=== PATIENT | female | born 1990 | race Caucasian/White ===

== ENCOUNTER 2024-01-21 23:41 | Outpatient (CLI) | payer OTHER, SELFPAY ==
[2024-01-22 00:09] VITALS: BP 143/88; PULSE 127; PULSE 86; PULSE 87; RESP 18; TEMP 36.4; O2SAT 81; O2SAT 99
[2024-01-22 00:27] VITALS: BP 124/81; PULSE 96
[2024-01-22 00:30] LABS: Appearance Urine Slightly Cloudy (Clear); Bilirubin Urine Negative (Negative); Blood Urine 3+ (Negative); Color Urine Yellow (Yellow); Glucose Urine Negative (Negative); Ketones Urine Negative (Negative); Leukocyte Esterase Urine Negative (Negative); Nitrite Urine Negative (Negative); Protein Urine Negative (Negative); Urobilinogen Urine 0.2 (0.2-1.0); pH Urine 6.5 (5.0-8.5)
[2024-01-22 00:40] LABS: Bacteria Urine Moderate; Mucus Urine Few; Squamous Epithelial Cell Urine Few (None-Few)
[2024-01-22 00:41] LABS: Amnisure Rom* Negative
--- NOTE | 2024-01-22 00:47 | US_ITS ---
Patient: TIERNEY GRAVES Facility:?[facility] Patient ID:?[id number] Site Patient ID:?[id number]. Site :?[id number] Study:?US-Abdomen Bilateral RENAL-01/22/2024 1:58:41 AM Ordering Physician:LUIGI PANCHAL Final Report: Indication: Rule out kidney stone Technique: Sonographic evaluation of the kidneys and bladder. Grayscale and color Doppler utilized. Comparison: None Findings: Right kidney: Unremarkable size. Multiple renal stones present. No hydronephrosis. Left kidney: Unremarkable size. Multiple renal stones present. Mild hydronephrosis. Bladder: Filled with debris. Impression: Bilateral renal stones with mild left hydronephrosis and debris in the bladder lumen. Dictated by Tevin Edge MD @ 01/22/2024 2:52:57 AM Signed by:?Tevin Edge MD @01/22/2024 2:52:57 AM (Electronic Signature)
[2024-01-22] MEDS: OXYCODONE 5 MG TABLET PO ×2 (01:03→04:45)
[2024-01-22] MEDS: ONDANSETRON ODT 4 MG TAB PO (01:03)
[2024-01-22 01:26] LABS: Basophils Absolute Auto 0.01 K/uL (0.00-0.30); Basophils Percent Auto 0.1 % (0.0-3.0); Eosinophils Absolute Auto 0.08 K/uL (0.00-0.50); Eosinophils Percent Auto 0.8 % (0.0-7.0); Hematocrit 35.3 % (33.0-51.0); Hemoglobin* 11.6 gm/dL (12.0-16.0); Immature Granulocytes Abs Auto 0.02 K/uL (0.00-0.30); Immature Granulocytes Pct Auto 0.2 %; Lymphocytes Percent Auto 16.6 % (20-44); Mean Corpuscular HGB Conc 33 gm/dL (32-36); Mean Corpuscular Hemoglobin 27 pg (26-34); Mean Corpuscular Volume 82 fL (80-100); Monocytes Percent Auto 7.3 % (0.0-11.0); Platelet Count* 203 K/uL (140-440); RDW Coefficient of Variation % 12.9 % (11.5-15.5); Red Blood Count 4.32 m/uL (4.00-5.20); White Blood Count* 9.92 K/uL (4.50-11.00)
[2024-01-22 01:32] LABS: Slide Review Reflex No
[2024-01-22 01:42] LABS: Albumin* 3.5 g/dL (3.3-5.0); Chloride* 106 mmol/L (96-114); Sodium* 135 mmol/L (135-149)
[2024-01-22 01:43] LABS: Potassium* 3.8 mmol/L (3.6-5.1)
[2024-01-22 01:45] LABS: Alkaline Phosphatase* 114 U/L (40-150); Anion Gap 8 mEq/L (7-15); Aspartate Amino Transferase* 24 U/L (12-35); Bilirubin Total* 0.2 mg/dL (0.1-1.5); Blood Urea Nitrogen* 13 mg/dL (5-24); Carbon Dioxide* 21 mmol/L (20-32); Creatinine* 0.6 mg/dL (0.5-1.5); Estimated Glomerular Filt Rate 121 ml/min; Total Protein* 6.6 g/dL (6.0-8.3)
[2024-01-22 01:46] LABS: Alanine Aminotransferase* 18 U/L (4-35); Calcium* 9.7 mg/dL (8.4-10.6); Glucose* 109 mg/dL (60-115)
[2024-01-22 03:37] VITALS: BP 135/79; PULSE 97
--- NOTE | 2024-01-22 06:12 | PC.OBNST ---
NST Note NST Note Start: 01/22/24 00:01 Freq: ONCE Status: Active Protocol: Document 01/22/24 06:10 ABP (Rec: 01/22/24 06:12 ABP [id number]) NST Note 4 Para (# of births) 2 EDC 02/22/24 Gestational Age In Weeks & Days 35 Weeks & 4 Days Patient Presented with Complaint(s) of Pain If Pain, describe location Abdominal pain that wraps around into left flank Reactive Yes YANDEL Carroll RN Date 01/22/24 Reactive Yes YANDEL Mcguire RN Date 01/22/24 OB NST charge Yes Complete NST Note via Write Note Yes The provider's electronic signature indicates the NST is reactive/appropriate for gestational age. *Note to provider: If an addendum is required, open the patient's chart and click on the note under the Nurse/Allied Health tab.
== END 2024-01-22 04:50 | disposition home or self-care (01) ==
LOC: OB OUT 23:42 → OB 23:43
PROVIDERS: PCP Family Medicine; Visit Provider Family Medicine
DX: O26.893 Other specified pregnancy related conditions, third trimester (principal); N20.0 Calculus of kidney; Z3A.35 35 weeks gestation of pregnancy
CPT/HCPCS: 36415; 59025; 76770; 80053; 81001; 81003; 84112; 85025; 87086; G0463; A9270

== ENCOUNTER 2024-02-15 07:06 | Inpatient (IN) | payer OTHER, SELFPAY ==
[2024-02-15] VITALS (65 sets, daily range): BP systolic 108–151; BP diastolic 60–94; PULSE 88–151; RESP 16; TEMP 36.4–36.8; O2SAT 81–100; BMI 35.6
[2024-02-15] MEDS: LACTATED RINGERS 1000 ML 1,000 ML 125 ML IV ×3 (07:50→19:07)
[2024-02-15] MEDS: OXYTOCIN 30 unit/500 ML in NS 30 UNIT/500 ML BAG IVPB (07:52)
[2024-02-15 08:16] LABS: Basophils Absolute Auto 0.02 K/uL (0.00-0.30); Basophils Percent Auto 0.3 % (0.0-3.0); Eosinophils Percent Auto 1.4 % (0.0-7.0); Hematocrit 35.9 % (33.0-51.0); Hemoglobin* 11.8 gm/dL (12.0-16.0); Immature Granulocytes Abs Auto 0.01 K/uL (0.00-0.30); Immature Granulocytes Pct Auto 0.1 %; Lymphocytes Absolute Auto 1.81 K/uL (0.90-2.90); Lymphocytes Percent Auto 24.7 % (20-44); Mean Corpuscular HGB Conc 33 gm/dL (32-36); Mean Corpuscular Hemoglobin 27 pg (26-34); Mean Corpuscular Volume 82 fL (80-100); Monocytes Percent Auto 8.2 % (0.0-11.0); Neutrophils Percent Auto 65.3 % (42.0-72.0); Platelet Count* 204 K/uL (140-440); RDW Coefficient of Variation % 13.5 % (11.5-15.5); Red Blood Count 4.39 m/uL (4.00-5.20); White Blood Count* 7.34 K/uL (4.50-11.00)
[2024-02-15 08:18] LABS: Slide Review Reflex No
--- NOTE | 2024-02-15 12:59 | P.OBHP_ITS ---
OB - H&P: HPI Labor/Induction History of Present Illness Date Seen: 02/15/24 Chief Complaint: The patient is a 33 year old 3 para 2001 at 39 weeks gestation by LMP and confirmed with US, who presents for IOL for recurrent kidney stones in . has otherwise been uncomplicated. Chief complaint: maternity Indications for induction: other Narrative: Tanika Cortes is a 33 year at 39 weeks by LMP here for IOL for kidney stones. She is GBS negative, rubella immune rH+. She has had some contractions at home, but even when regular hasn't lasted more than an hour. She had highBp with first , no elevated blood pressures with this and has been on ASA. She is on ppx acyclovir for genital herpes history. History of Present Dating criteria: based on LMP care: good care Ultrasounds: normal 1st trimester US and normal mid trimester US Medical complications: genitourinary (kidney stones) Labs Blood type: O (+) positive Rubella: immune RPR/VDLR: nonreactive GBS status: negative HBsAG: negative Review of Systems 2 Status of ROS: Reports: 6 or more systems reviewed and unremarkable except as noted in History and below Meds Home Medications and Allergies Home Medications Medication Instructions Recorded Confirmed Type docosahexaenoic acid 200 mg mg PO 12/24/23 12/24/23 History capsule ( DHA) acyclovir 400 mg tablet 400 mg PO 3XD 02/15/24 02/15/24 History Allergies Allergy/AdvReac Type Severity Reaction Status Date / Time No Known Drug Allergies Allergy Verified 12/24/23 10:56 OB - H&P: Exam Physical Exam: Vital signs: Temp Pulse BP Pulse Ox 97.6 F 104 H 127/83 97 02/15/24 10:26 02/15/24 12:27 02/15/24 12:27 02/15/24 12:11 Constitutional: Constitutional: no acute distress Routine HEENT Exam: Head: Present atraumatic Eye: Present EOMI and PERRL ENT: Present mucous membranes moist Routine Neck Exam: Neck: Present full ROM Routine Respiratory Exam: Respiratory: Present CTA bilaterally Routine Cardiovascular Exam: Cardiovascular: RRR Comments: no murmur Detailed Labor and Delivery Exam: Patient Gravid: Yes Dilation (cm): 4 Effacement (%): 50 Cervix position: mid Consistency: soft Contraction frequency (min): 4 Contraction intensity: Mild Fetus (Single): Station: -2 Routine Extremities Exam: Extremities: Present full ROM Comments: no swelling or redness Routine Neurological Exam: Present alert, oriented X3 and CN II-XII intact Routine Psychiatric Exam: Present normal affect and normal thought process OB - Results Labs Labs: Short CBC 02/15/24 Range/Units 07:50 WBC 7.34 (4.50-11.00) K/uL Hgb 11.8 L (12.0-16.0) gm/dL Hct 35.9 (33.0-51.0) % Plt Count 204 (140-440) K/uL OB - Problem Based A/P Additional Plan (1) Kidney stones: Status: Acute (2) Term : Status: Acute Delivery/Labor/Induction Plan Plan: induction Induction method: AROM (Completed with return of small amount of clear fluid)
--- NOTE | 2024-02-15 17:42 | P.OBPN_ITS ---
Subjective Date Seen: 02/15/24 Narrative: Tanika is feeling more uncomfortable with contractions, some are stronger than others. Still not needing an epidural Continues to leak clear fluid. Objective Vital Signs: Last Vital Signs Temp 97.5 F L 02/15/24 16:00 Pulse 105 H 02/15/24 17:27 BP 129/83 02/15/24 17:27 Pulse Ox 98 02/15/24 15:28 Pelvic Exam Dilation (cm): 6 Effacement (%): 70 Station: -2 Contractions Monitor mode: External Contraction Frequency: 3 minutes Contraction intensity: Mild Pitocin Rate (mU/min): 10 Assessment Assessment: active labor Station: -2 Amniotic Membrane Status: AROM Status: Category l Heart Rate Baseline: 145 Apparatus Cleaner Variability: Moderate (6-25) Monitor Accelerations: Present Monitor Decelerations: None Plan Plan: Continue pitocin per protocol. Epidural per patient request if needed. Anticipate .
[2024-02-15] MEDS: ROPIVACAINE 0.2% 100 ml 100 ML 12 MG EPIDURAL (19:20)
--- NOTE | 2024-02-15 19:23 | P.ANBPRC_ITS ---
[facility] Medical History (Updated 02/15/24 @ 13:03 by Anika Castellanos MD) Kidney stones ?N20.0 - Calculus of kidney (ICD-10) Social History What is your current living situation?: I presently have a place to live Problems where you live: no known problems In the past 12 months, utilities in danger of being shut off: no In past 12 months, lack of transportation kept you from medical appts, meetings, work, or getting things needed for daily living: no In the past 12 mos, have been you worried that your food would run out before you had money to buy more?: never true In the past 12 mos, the food you bought just didn't last and you didn't have money to buy more?: never true Smoking Status: Never smoker How often does anyone, including family, friends and others, physically hurt you : never How often does anyone, including family, friends and others, insult or talk down to you: never How often does anyone, including family, friends and others, threaten you with harm: never How often does anyone, including family, friends and others, scream or curse at you: never Meds Home Medications and Allergies Home Medications Medication Instructions Recorded Confirmed Type docosahexaenoic acid 200 mg mg PO 12/24/23 12/24/23 History capsule ( DHA) acyclovir 400 mg tablet 400 mg PO 3XD 02/15/24 02/15/24 History Allergies Allergy/AdvReac Type Severity Reaction Status Date / Time No Known Drug Allergies Allergy Verified 12/24/23 10:56 Results Labs Labs: Laboratory Results - last 24 hr 02/15/24 07:50 WBC 7.34 RBC 4.39 Hgb 11.8 L Hct 35.9 MCV 82 MCH 27 MCHC 33 RDW Coeff of [place] 13.5 Plt Count 204 Neut % (Auto) 65.3 Lymph % (Auto) 24.7 [place] % (Auto) 8.2 Eos % (Auto) 1.4 Baso % (Auto) 0.3 Neut # (Auto) 4.80 Lymph # (Auto) 1.81 [place] # (Auto) 0.60 Eos # (Auto) 0.10 Baso # (Auto) 0.02 Abs Immat Gran (auto) 0.01 Imm/Tot Granulo (auto) 0.1 Blood Type O Positive Antibody Screen NEGATIVE Vital Signs Vital Signs: Last Vital Signs Temp 98.2 F 02/15/24 19:22 Pulse 102 H 02/15/24 19:23 Resp 16 02/15/24 18:31 BP 111/67 02/15/24 19:23 Pulse Ox 98 02/15/24 19:22 Weight: 109.361 kg Height: 175.26 cm Anesthesia Procedures Epidural Insertion Patient Location: OB Start Time: 18:55 Stop Time: 19:24 Start Date: 02/15/24 Stop Date: 02/15/24 Reason for Block: procedure for pain (loaded with 8 mL of 0.25% bupivacaine after negative test dose, see MAR ) Patient Position: sitting Performed By: Kennedy Wilkinson Preanesthetic Checklist: IV checked, risks and benefits discussed, monitors and equipment checked, pre-op evaluation, timeout performed and anesthesia consent Prep: chlorhexidine gluconate Monitoring: blood pressure monitoring, continuous pulse oximetry and heart rate Approach: midline Vertebral Space: lumbar (1-5) Epidural Technique: AVIVA saline Needle Type: Tuohy needle Injection Technique: continuous catheter Needle gauge: 17 Needle Length (cm): 10 cm Needle Insertion Depth (cm): 7 Catheter Gauge: 19 Catheter Type: multi-orifice Catheter at skin depth (cm): 13 Test Dose Result: negative and lidocaine 1.5% with epinephrine 1 to 200,000
--- NOTE | 2024-02-15 22:26 | W.PM.VAGD1_ITS ---
Procedure Delivery date: 02/15/24 Procedure Done: Global Events: Labor Induction Intrapartal Events: Labor Augmentation Delivery augmentation: rupture of membranes Delivery monitor: external FHT and external uterine Route of delivery: Laceration description: Perineal - 2nd Degree Delivery repair: Vicryl Estimated blood loss (mL): 225 Anesthesia type: Epidural Narrative: The patient is a 33 year-old admitted on 02/15/2024 at 39 Weeks, 0 Days gestation for IOL for symptomatic kidney stones.? Cervical exam on admission was 2 cm/50 % effaced/-2 station with membranes intact in vertex presentation.? Contractions were irregular.? heart rate demonstrated baseline 150 bpm with moderate variability, + accelerations, - decelerations; a category 1 tracing.?Pitocin was started after reassuring FHTs obtained. AROM occurred at 1248 with clear fluid. ? Labor Analgesia:? epidural ? Pitocin:? yes ? Labor onset:? 1899 ? Complete:? 2122 ? Pushing:? 2129 ? heart tones during second stage were category 2. ? At 2146 a viable male delivered in vertex OA presentation over intact perineum via spontaneous vaginal delivery.? was placed on maternal abdomen.? Cord was clamped and cut after a 30-60 second delay.? Nose and mouth were bulb suctioned.? Infant weight pending.? 8 at 1 minute and 9 at 5 minutes.? Shoulder dystocia: no.? Nuchal cord: no. ? Placenta delivered spontaneously and complete at 215 with a 3 vessel cord. ? Mother and infant were stable after delivery. ? Lacerations:? 2nd degree, repaired with 3-0 vicryl suture. ? Blood loss: 225 mL. Blood loss measurement type: QBL ? Sponge and needles counts are correct. [place] Infant Infant Gender: Male presentation: vertex Placental Delivery Description: Spontaneous Cord Description: 3 Vessels
[2024-02-16] VITALS (8 sets, daily range): BP systolic 122–129; BP diastolic 78–85; PULSE 94–112; RESP 16–18; TEMP 36.4–36.8; O2SAT 97
[2024-02-16] MEDS: ACETAMINOPHEN 500 MG TABLET 1000 MG PO ×4 (02:13→21:33)
[2024-02-16] MEDS: IBUPROFEN 600 MG TABLET PO ×4 (04:43→23:36)
[2024-02-16 06:37] LABS: Hemoglobin* 10.9 gm/dL (12.0-16.0)
[2024-02-16] MEDS: DOCUSATE SODIUM 100 MG CAPSULE PO (08:30)
--- NOTE | 2024-02-16 08:40 | PM.ANPOST ---
Post Anesthesia Note Post Anesthesia Note Patient seen: Inpatient Respiratory Status: adequate Cardiovascular Status: adequate Mental Status: baseline Pain: adequate Temp: baseline Anesthetic awareness: N/A Complications: none Follow care: none
--- NOTE | 2024-02-16 10:02 | PM.OBPNVD1 ---
OB - PN:Subj Subjective Date Seen: 02/16/24 Patient comments OB post-: no complaints, pain well controlled and tolerating diet infant status: Narrative: Doing fine after delivery yesterday. No concerns at this time. OB - PN: Obj Exam Physical Exam: Vital signs: Temp Pulse Resp BP Pulse Ox O2 Del Method 98.2 F 94 16 124/85 97 Room Air 02/16/24 04:46 02/16/24 09:05 02/16/24 09:05 02/16/24 09:05 02/16/24 09:05 02/16/24 09:05 Constitutional: Constitutional: no acute distress Routine Abdominal Exam: Fundus: Present firm Routine Extremities Exam: Extremities: Absent calf tenderness or pedal edema OB - PN: Obj Data Labs Labs: Laboratory Results - last 24 hr 02/16/24 06:22 Hgb 10.9 L OB - PN: A/P Delivery Assessment and Plan (1) Kidney stones: Status: Acute (2) Term : Status: Inactive Plan Plan: routine care Comments: Discharge home tomorrow
[2024-02-16] MEDS: LANOLIN CREAM 1 APPLIC TOPICAL (16:23)
[2024-02-16 17:47] LABS: Rapid Plasma Reagin (RPR) Non Reactive (Non Reactive)
[2024-02-17] MEDS: ACETAMINOPHEN 500 MG TABLET 1000 MG PO (05:17)
[2024-02-17 05:27] VITALS: BP 124/81; PULSE 87; RESP 16; TEMP 36.6; O2SAT 97
--- NOTE | 2024-02-17 08:15 | PM.OBDSVD1 ---
DS: Providers Provider Date Seen: 02/17/24 Date of admission: 02/15/24 07:06 Primary care physician: Anika Castellanos MD Admitting Clinician: Anika Castellanos MD Attending Physician on discharge: Anika Castellanos MD Date of Discharge: 02/17/24 Exam Const: Vital Signs, click to edit/add: Vital Signs - 24 hr 02/16/24 09:05 02/16/24 13:11 02/16/24 18:43 Temperature 97.6 F 97.6 F Pulse Rate [Blood Pressure Cuff] 94 102 H 100 Respiratory Rate 16 16 18 Blood Pressure [Le ft Arm] 124/85 122/82 125/83 Pulse Oximetry 97 97 97 Oxygen Delivery Me thod Room Air Room Air Room Air 02/16/24 20:00 02/17/24 05:27 Temperature 97.6 F 97.8 F Pulse Rate [Blood Pressure Cuff] 112 H 87 Respiratory Rate 18 16 Blood Pressure [Le ft Arm] 129/84 124/81 Pulse Oximetry 97 97 Oxygen Delivery Me thod Room Air Room Air Common normals: no apparent distress Resp: Common normals: normal respiratory effort and clear to auscultation bilaterally Auscultation: clear to auscultation bilaterally Cardio: Common normals: regular rate and regular rhythm; murmurs detected Rate: regular rate Rhythm: regular rhythm GI: Common normals: soft to palpation Palpation: soft : Uterus: U/2 Extremity: Common normals: no calf tenderness OB - DS: Summary Hospital Course Hospital Course: The patient is a 33 year old G 3 P 3 at 39 weeks gestation that was admitted to the Center on 02/15/24 for IOL. She had an uncomplicated vaginal delivery. She delivered a viable male . She is breast feeding. the patient has done well. Peripartum Data Infant delivery method: Vaginal [place] Infant Gender: Male Time Spent with Patient Time attestation: Total time spent providing and/or coordinating discharge services: Discharge Plan Discharge Disposition: Home, Self-Care Date of Admission: 02/15/24 07:06 Primary Care Provider: Anika Castellanos Condition: Stable Anticipated Discharge Date/Time: 02/17/24 08:13 Discharge Medications: Continued DHA 200 mg capsule 200 mg PO DAILY Discontinued acyclovir 400 mg tablet 400 mg PO 3XD Discharge Orders: Discharge Order (Routine); Ordered 02/17/24 Ordered By: Alexey Miller Patient Education: Vaginal Delivery (DC) Activity Level: No Restrictions Discharge Diet: Regular Follow Up Appointments: Anika Castellanos MD [Primary Care Provider] - Forms: [employer] Info Instructions
[2024-02-17 08:39] VITALS: BP 137/86; PULSE 96; RESP 18; TEMP 36.2; O2SAT 97
== END 2024-02-17 09:33 | disposition home or self-care (01) | DRG 806 ==
PROVIDERS: Admitting Provider Family Medicine; PCP Family Medicine; Visit Provider Family Medicine
DX: O70.1 Second degree perineal laceration during delivery (principal); O98.32 Other infections with a predominantly sexual mode of transmission complicating childbirth; Z37.0 Single live birth; B00.9 Herpesviral infection, unspecified; Z3A.39 39 weeks gestation of pregnancy; O99.891 Other specified diseases and conditions complicating pregnancy; N20.0 Calculus of kidney; Z87.442 Personal history of urinary calculi
CPT/HCPCS: 01967; 36415; 85018; 85025; 86592; 86850; 86900; 86901; A9270; J0665; J2371; J2795; J7120

== ENCOUNTER 2024-03-26 08:49 | Outpatient (CLI) | payer OTHER, SELFPAY ==
--- OUTSIDE RECORDS SUMMARY | 2024-03-26 08:52 | XMS_ITS | Continuity of Care Document ---
Author Organization [facility], [facility] Address [address] [address] [place] [address] Care Team Providers Care Nurse Assistant Name Role Phone HARPALKEERTHI ARORAISTIN Primary Care Provider Assessment Encounter Date Assessment Date Assessment LastModified by Organization Details LastModified Time 03/18/2024 03/18/2024 33 year old female with a history of nephrolithias is. Not available 03/18/2024 11:41:23 Plan of Treatment Reminders Order Date Submit Date Provider Last Modified By Organization Details Last Modified Time Details Appointments None recorded. Lab urinalysis, dipstick 2023 024 [facility], [address], [address], [place], [address], 17:49:06 urinalysis, microscopic 2023 024 [facility], [address], [address], [place], [address], 17:49:09 Referral None recorded. Procedures None recorded. Surgeries None recorded. Imaging CT, abdomen + pelvis, w/o contrast [address] Radiology Department, [address] [place], [address], 13:10:26 Medication Orders None recorded. Patient TargetsNo targets recorded. Patient Instructions Encounter Date Encounter Id Patient Instructions Last Modified By Organization Details Last Modified Time 03/18/2024 [id number] Nephrolithiasis: We discussed the heightened risk for stone formation during . I would say that since all stone formation occurred during this period the role of metabolic evaluation is likely quite limited. I do think we should check follow up CT imaging to ensure no residual ureteral stones remains. I suspect if she only harbors small non-obstructing stones I would recommend observation over surgical management. I will call her with the results of her CT and we will proceed from there. Not available 03/18/2024 12:45:30 Reason for Referral None Reported. Results Created Date Observation Date Name Description Value Unit Range Abnormal Flag LastModifiedBy Organization Detail LastModifiedTime 03/14/20 24 01/22/2024 US, renal No observ ation record ed. [email or web address] Not Available 03/14/2024 14:37:53 Result Notes None recorded. Problems Name Status Onset Date Resolution Date Notes Provider Name and Address Organization Details Recorded Time Genital herpes simplex Active 4 Rishi payne, [facility] 03/07/2024 09:02:02 Kidney stone Active 4 Rishi Bennett el[place], [facility] 03/07/2024 09:03:05 Problem Notes None recorded. Procedures Surgical History Date Name Laterality Status Provider Name and Address Organization Details Recorded Time 03/18/20 24 COMPLEX VISIT completed Brett Orona MD [address] [place] [address], [id number], [facility] 03/18/2024 11:40:44 03/18/20 24 Past Data Reviewed completed Brett Orona MD [address] [place] [address],[address], [address], [facility] 03/18/2024 11:40:42 Laparoscopic cholecystectomy completed Not Available Health Note 03/14/2024 13:23:12 Imaging Results None recorded. Procedure Notes None recorded. Medical Equipment None Reported. Allergies No known drug allergies Medications Name Sig Start Date Stop Date Status Note LastModified by Organization Details LastModified Time ofloxacin 0.3 % eye drops PUT 1-2 DRPS INTO AFFECTED EYE(S) EVERY 2-4 HOURS X 2 DAYS, THEN 1-2 DRPS 4 TIMES/DAY DAYS 3-7 03/18 completed Not Available Not Available Not Available acyclovir 400 mg tablet TAKE 1 TABLET (400 MG) BY MOUTH THREE TIMES DAILY. active Not Available Not Available No t Available oxycodone 5 mg tablet TAKE 1 TABLET (5 MG) BY MOUTH EVERY 4 HOURS IF NEEDED FOR PAIN. active Not Available Not Available No t Available Vitals Date Recorded Body mass index (BMI) Body weight Body height Provider Name and Address Organization Details Last Updated DateTime 03/18/2024 31.7 kg/m2 66759.02626 09596 g 175.26 cm Not Available Health Note 03/18/2024 08:38:27 Social History Question Answer Notes LastModified by Organizat ion Details LastModified Time Tobacco Smoking Status Never Smoker Not Available Health Note 03/14/2024 13:23:12 What Is Your Level Of Alcohol Consumption? Occasional [email or web address] Information not available 03/14/2024 What Is Your Level Of Caffeine Consumption? None [email or web address] Information not available 03/14/2024 How Much Tobacco Do You Chew? None [email or web address] Information not available 03/14/2024 Do You Or Have You Ever Used E-cigarettes Or Vape? Never Used Electronic Cigarettes [email or web address] Information not available 03/14/2024 Number Of Pregnancies 4 [email or web address] Information not available 03/14/2024 Number Of Vaginal Deliveries 3 [email or web address] Information not available 03/14/2024 Number Of Caesarean Sections 0 [email or web address] Information not available 03/14/2024 Could You Be ? No [email or web address] Information not available 03/14/2024 What Was The Date Of Your Most Recent Tobacco Screening? 03/18/2024 [email or web address] Information not available 03/14/2024 Have You Ever Been Counseled For Unhealthy Alcohol Use? No Information not available 03/18/2024 What Is Your Relationship Status? [email or web address] Information not available 03/14/2024 Are You Sexually Active? No [email or web address] Information not available 03/14/2024 Do You Or Have You Ever Used Smokeless Tobacco? Never Used Smokeless Tobacco [email or web address] Information not available 03/14/2024 Do You Use Any Illicit Or Recreational Drugs? No [email or web address] Information not available 03/14/2024 Has Tobacco Cessation Counseling Been Provided? No Information not available 03/18/2024 Do You Or Have You Ever Used Any Other Forms Of Tobacco Or Nicotine? No Information not available 03/18/2024 How Many Days In The Past Year Have You Consumed 4 Or More Drinks? 0 [email or web address] Information no t available 03/14/2024 Sex: Female Functional Status None recorded. Mental Status None recorded. Family History Relationship Description Onset Age of this Age Resolved Age Notes Maternal Grandmother Family history of breast cancer Father Family history of cardiac disorder Medical History Condition Response High Blood Pressure Y Kidney Stones N Depression N Lung Disease N GERD/Acid Reflux N Sexually Transmitted Infection Y Cancer N High Cholesterol N Diabetes N Bleeding Disorder N Heart Disease N Gynecological History Statement/Question Response Irregular periods N Heavy periods N Sexually Active? N Obstetrics History GPAL:G 0 P 0 0 0 0 Immunizations Vaccine Type Date Status Provider Name and Address Organization Details Recorded Time SARS-COV-2 (COVID-19) vaccine, UNSPECIFIED 07/06/2022 completed Rishi Meath null, [facility] 03/18/2024 12:30:05 influenza, unspecified formulation 07/06/2023 completed Rishi Meath null, [facility] 03/18/2024 12:30:05 Influenza, injectable, MDCK, quadrivalent, preservative 09/07/2020 completed Rishi Meath null, [facility] 03/18/2024 12:30:05 MMR 06/12/2003 completed Rishi Meath null, [facility] 03/18/2024 12:30:05 COVID-19, mRNA, LNP-S, PF, 100 mcg/0.5mL dose or 50 mcg/0.25mL dose 10/17/2021 completed [facility] Meath null, [facility] 03/18/2024 12:30:05 COVID-19, mRNA, LNP-S, PF, 30 mcg/0.3 mL dose 02/07/2021 completed Rishi Meath null, [facility] 03/18/2024 12:30:05 COVID-19, mRNA, LNP-S, PF, 30 mcg/0.3 mL dose 02/28/2021 [facility] 12:30:05 COVID-19, mRNA, LNP-S, bivalent, PF, 30 mcg/0.3 mL dose 09/04/2022 completed Rishi Meath null, [facility] 03/18/2024 12:30:05 Tdap 11/26/2023 completed Rishi Meath null, [facility] 03/18/2024 12:30:05 Tdap 01/16/2014 completed Rishi Meath null, [facility] 03/18/2024 12:30:05 Tdap 05/16/2021 completed Rishi Meath null, [facility] 03/18/2024 12:30:05 Tdap 08/06/2018 completed Rishi Meath null, [facility] 03/18/2024 12:30:05 HPV, quadrivalent 05/03/2009 completed Rishi Meath null, [facility] 03/18/2024 12:30:05 Td (adult), 2 Lf tetanus toxoid, preservative free, adsorbed 06/12/2003 completed Rishi Meath null, [facility] 03/18/2024 12:30:05 Hep B, adolescent or pediatric 03/08/2004 completed Rishi Meath null, [facility] 03/18/2024 12:30:06 Hep B, adolescent or pediatric 06/12/2003 completed Rishi Meath null, [facility] 03/18/2024 12:30:06 Hep B, adolescent or pediatric 07/15/2003 completed Rishi Meath null, [facility] 03/18/2024 12:30:06 meningococcal MCV4P 04/30/2008 completed Rishi Meat h null, [facility] 03/18/2024 12:30:06 influenza, injectable, quadrivalent, preservative free 11/27/2017 completed Rishi Meath null, [facility] 03/18/2024 12:30:06 influenza, injectable, quadrivalent, preservative free 07/20/2023 completed Rishi Meath null, [facility] 03/18/2024 12:30:06 influenza, injectable, quadrivalent, preservative free 08/06/2018 completed Rishi Meath null, [facility] 03/18/2024 12:30:06 influenza, injectable, quadrivalent, preservative free 08/28/2019 completed Rishi Meath null, [facility] 03/18/2024 12:30:06 influenza, injectable, quadrivalent, preservative free 09/04/2022 completed Rishi payne [facility] 03/18/2024 12:30:06 influenza, injectable, quadrivalent, preservative free 09/09/2021 completed Rishi payne [facility] 03/18/2024 12:30:06 Past Encounters Encounter ID Performer Location Encounter Start Date Encounter Closed Date Diagnosis/Indication Diagnosis SNOMED-CT Code [id number] Brett Orona MD [facility] [address] [place] [address] 03/18/2024 08:38:23 03/18/2024 13:10:26 Kidney stone [id number] Health Concerns Section Related Observation LastModified by Organization Detai ls LastModified Time None Recorded Concern Status LastModified by Organization Details LastModified Time None Recorded Payers Encounter Date Sequence Insurance Name Policy Number Policy Rankin Covered Member ID Rankin Member ID Guarantor Name 03/18/2024 1 [facility] [id number] Joe Gnosalez [id number] Tanika Cortes Notes Date Note Type Note Provider Name and Address Organization Details Recorded Time 03/18/2024 text/html HPI Notes: This is a 33 year old female who is referred for the evaluation and management of nephrolithiasis She recently delivered a son. During she developed an acute stone episode and subsequently passed a stone. She had not had this before or during prior pregnancies. Since delivery she has been asymptomatic. She denies flank pain, nausea, or gross hematuria. She is not planning on having any more children. Brett Orona MD [address] [place] [address],[facility] [address], [place], [address], [facility] 03/18/2024 12:45:38 OBGyn Episode No OBEpisode recorded.
--- OUTSIDE RECORDS SUMMARY | 2024-03-26 08:52 | XMS_ITS | Clinical Summary ---
Author Organization [facility] Address [place], [place] [address] Care Team Providers Care Appliance Servicer Name Role Phone Anika Castellanos MD Primary Care Provider Allergies No known active allergies Medications Medication Sig Dispensed Refills Start Date End Date Status 2-[id number] ACID-OM3 ORAL Take by mouth. Active aspirin 81 mg cap Take 81 mg by mouth once daily. Active acyclovir (ZOVIRAX) 400 mg tabletIndications:Genit al herpes simplex, unspecified site Take 1 Tablet (400 mg) by mouth three times daily. 120 Tablet 1 01/14/2024 Active oxyCODONE (ROXICODONE) 5 mg immediate release tabletIndications:Nephr olithiasis,Renal colic Take 1 Tablet (5 mg) by mouth every 4 hours if needed for Pain. 10 Tablet 01/22/2024 Active ondansetron (ZOFRAN ODT) 4 mg disintegrating tabletIndications:Nephr olithiasis,Renal colic Place 1 Tablet (4 mg) on the tongue every 8 hours if needed for Nausea/Vomitin g. 15 Tablet 01/22/2024 Active Active Problems Problem Noted Date Diagnosed Date #3 08/21/2023 Overview: Estimated Date of Delivery: 02/22/24 Patient's last menstrual period was 05/18/2023. GBS- 28 wk labs: GLUCOSE,GESTATIONAL Date Value Ref Range Status 11/26/2023 122 70 - 139 mg/dL Final HEMOGLOBIN Date Value Ref Range Status 11/26/2023 11.8 (L) 12.0 - 16.0 g/dL Final TREPONEMA PALLIDUM Date Value Ref Range Status 11/26/2023 Non-Reactive Non-Reactive Final Last Tdap- 11/26/23 Last Flu vaccine- 07/20/23 OB Labs: ABORH Date Value Ref Range Status 07/20/2023 O Rh Positive Final ANTIBODY SCREEN Date Value Ref Range Status 07/20/2023 Negative Negative Final HEMOGLOBIN Date Value Ref Range Status 07/20/2023 12.8 12.0 - 16.0 g/dL Final PLATELET COUNT Date Value Ref Range Status 07/20/2023 260 140 - 440 thou/cu mm Final TREPONEMA PALLIDUM Date Value Ref Range Status 07/20/2023 Negative Negative Final RUBELLA IGG ANTIBODY Date Value Ref Range Status 07/20/2023 1.37 >=1.00 Index Final INTERPRETATION Date Value Ref Range Status 07/20/2023 Positive Final Comment: Presence of detectable IgG antibodies. A positive result generally indicates exposure to the virus or previous vaccination, but is not an indication of active infection or stage of disease. HBSAG Date Value Ref Range Status 07/20/2023 Nonreactive Nonreactive Final CHLAMYDIA PROBE Date Value Ref Range Status 07/20/2023 Negative Final N GONORRHOEAE PROBE Date Value Ref Range Status 07/20/2023 Negative Final ANTI HIV 1/2 Date Value Ref Range Status 07/20/2023 Nonreactive Nonreactive Final No Known Allergies OB History Para Term AB Living 4 2 2 0 0 2 SAB IAB Ectopic Multiple Live Births 0 0 0 0 2 # Outcome Date GA Lbr Laureano/2nd Weight Sex Delivery Anes PTL Lv 4 Current 3 Term 07/12/21 38w3d 3.71 kg (8 lb 3 oz) F Vag EPIDURAL N RAJI Name: Barbara 2 Term 10/16/18 38w3d 3.63 kg (8 lb) M Vag-Vacuum EPIDURAL N RAJI Comments: vacuum for maternal exhaustion Name: Prakash 1 Past Medical History: . Date Genital herpes, unspecified 07/12/2010 Past Surgical History: . Laterality Date (IA) MD REPAIR NONUNION SCAPHOID CARPAL BONE 2006 pin in scaphoid from fracture LAPAROSCOPIC APPENDECTOMY 03/13/2019 Marivel Mccall RN ....08/21/2023 4:00 PM Encounter for supervision of other normal , first trimester 12/29/2020 Genital herpes, unspecified 07/12/2010 Resolved Problems Problem Noted Date Diagnosed Date Resolved Date 12/03/2020 08/21/2023 Overview: Component Latest Ref Rng & Units 06/29/2021 Vaginal/Rectal OB Strep B PCR Negative Estimated Date of Delivery: 07/31/2021 Patient's last menstrual period was 10/16/2020 (exact date). Last Tdap- 05/16/2021 Last Flu vaccine- 08/06/2018 Glucose (GTT) result- Component Latest Ref Rng & Units 04/20/2021 HEMOGLOBIN 12.0 - 16.0 g/dL 11.2 (L) MCV 80 - 100 fL 86 GLUCOSE,GESTATIONAL 65 - 139 mg/dL 166 (H) TREPONEMA PALLIDUM Negative Negative 20 week US: FINDINGS: Sonographic imaging demonstrates a single living intrauterine gestation. Fetus demonstrates a regular cardiac rate of 146 beats per minute. Fetus has a transverse position, head maternal left. The placenta lies posteriorly without evidence of placenta previa. Amniotic fluid volume appears normal. Single deepest vertical pocket: 5.3 cm. The cervix is closed and measures 4.2 cm in length. The composite ultrasound gestational age is calculated at 21 weeks 0 days with an estimated sonographic due date of 07/18/2021. No Known Allergies OB History Para Term AB Living 3 1 1 0 0 1 SAB TAB Ectopic Multiple Live Births 0 0 0 0 1 # Outcome Date GA Lbr Laureano/2nd Weight Sex Delivery Anes PTL Lv 3 Current 2 Term 10/16/18 38w3d 3.63 kg (8 lb) M Vag-Vacuum EPIDURAL N RAJI Comments: vacuum for maternal exhaustion Name: Prakash Chiu Create lab flowsheet for OB labs- Component Latest Ref Rng & Units 12/02/2020 12/02/2020 12/02/2020 3:57 PM 3:57 PM 3:57 PM HEMOGLOBIN 12.0 - 16.0 g/dL 13.1 MCV 80 - 100 fL 86 RUBELLA IGG ANTIBODY Positive 1.56 HIV-1/HIV-2 ANTIBODY Non-Reactive Non-Reactive ABORH O Rh Positive HBSAG Nonreactive Nonreactive TREPONEMA PALLIDUM Negative Negative Past Medical History: . Date ? ? Genital herpes, unspecified 07/12/2010 Past Surgical History: . Laterality Date ? ? (IA) MD REPAIR NONUNION SCAPHOID CARPAL BONE 2006 pin in scaphoid from fracture ? ? LAPAROSCOPIC APPENDECTOMY 03/13/2019 No data on file. OB 12/02/2020 Problems (from 12/02/20 to present) No problems associated with this episode. Tiffany Nolan RN.....12/03/2020 8:52 AM Gestational hypertension, third trimester 10/15/2018 12/03/2018 Encounter for supervision of normal first , third trimester 11/27/2017 12/03/2018 Overview: Estimated Date of Delivery: 10/27/18 Patient's last menstrual period was 01/20/2018 (exact date). Last Tdap- 08/06/18 Last Flu vaccine- 08/06/2018 Component Latest Ref Rng & Units 07/09/2018 HEMOGLOBIN 12.0 - 16.0 g/dL 12.6 MCV 80 - 100 fL 88 GLUCOSE,GESTATIONAL 65 - 139 mg/dL 128 Component Latest Ref Rng & Units 10/01/2018 Culture No Group B Streptococcus isolated. No Known Allergies Obstetric History T0 L0 SAB0 TAB0 Ectopic0 Multiple0 Live Births0 # Outcome Date GA Lbr Laureano/2nd Weight Sex Delivery Anes PTL Lv 2 Current 1 Create lab flowsheet for OB labs- Component Latest Ref Rng & Units 03/11/2018 03/11/2018 03/11/2018 2:16 PM 2:16 PM 2:16 PM ANTIBODY SCREEN Negative Negative SPECIMEN EXPIRATION DATE/TIME 03/14/18 23:59 HEMOGLOBIN 12.0 - 16.0 g/dL 13.4 MCV 80 - 100 fL 88 RUBELLA IGG ANTIBODY Positive 1.60 HEMOGLOBIN A1C SCREENING <6.4 % 4.8 ABORH O Rh Positive HBSAG Nonreactive Nonreactive HEPATITIS C ANTIBODY Non-Reactive Non-Reactive HIV-1/HIV-2 ANTIBODY Non-Reactive Non-Reactive TREPONEMA PALLIDUM Negative Negative Past Medical History: Diagnosis Date ? ? Genital herpes, unspecified 07/12/2010 Past Surgical History: Procedure Laterality Date ? ? MD REPAIR NONUNION SCAPHOID CARPAL BONE 2006 pin in scaphoid from fracture No data on file. 2nd Problems (from 03/11/18 to present) No problems associated with this episode. JESSICA Zaldivar.....04/08/2018 7:39 AM Encounters Date Type Department Care Team Description 02/16/2024 Orders Only [facility] Scanner 1 scan: (1-Ord) [place], HGB RESULTS, 02/16/2024 02/15/2024 Orders Only [facility] Scanner 1 scan: (1-Ord) [facility], LAB RESULT , 02/15/2024 02/15/2024 Orders Only [facility] Scanner 1 scan: (1-Ord) [facility], GLOBAL, 02/15/2024 02/11/2024 10:20 AM CDT OB Encounter [facility] [address] [place] [address] Anika Castellanos MD Care (38wk 3d/Having contractions, has had a few that are stop in tracks but none today, nothing consistent.) 02/11/2024 Travel 02/06/2024 10:30 AM CDT OB Encounter [facility] [address] [place] [address] Anika Castellanos MD Care (37w 5d) 02/06/2024 Travel 01/25/2024 10:30 AM CDT OB Encounter [facility] [address] [place] [address] Anika Castellanos MD Care (36wk /) 01/25/2024 Travel 01/22/2024 Orders Only [facility] Scanner 1 scan: (1-Ord) [facility], URINE CULTURE, 01/22/2024 01/22/2024 Orders Only [facility] Scanner 1 scan: (1-Ord) [place], URINE CULTURE, 01/22/2024 01/22/2024 Orders Only [facility] Scanner 1 scan: (1-Ord) [facility], MULTIPLE RESULTS, 01/22/2024 01/22/2024 Orders Only [facility] Scanner 1 scan: (1-Ord) [place], RENAL BLADDER, 01/22/2024 01/22/2024 Orders Only [facility] Scanner 1 scan: (1-Ord) [facility], AMNISURE ROM, and URINALYSIS, 01/22/2024 01/22/2024 Telephone [facility] [address] [facility] [address] Savanna Silva MD 01/14/2024 8:40 AM CDT OB Encounter [facility] [address] [place] [address] Anika Castellanos MD Care (34w 3d) 01/14/2024 Travel 01/02/2024 11:45 AM EDGE MOLDER Office Visit [facility] [address] [place] [address] Anika Castellanos MD Hematuria (Yesterday afternoon urine was pinkish and she did not feel great yesterday. This morning it was still pinkish but since then her urine looks normal) 01/02/2024 Travel 12/31/2023 2:15 PM EDGE MOLDER OB Encounter [facility] [address] [facility] [address] Anika Castellanos MD Care (32 w 3 d/) 12/31/2023 Travel from Last 3 Months Immunizations Name Administration Dates Next Due COVID-19 vaccine (Vovici-Bio NTech 30mcg/0.3mL) 12YO+ BIVALENT PF, MDV 09/04/2022 COVID-19 vaccine (Vovici-Bio NTech 30mcg/0.3mL) PF, MDV 10/17/2021,02/28/2021,02/07/2021 DTaP 05/14/1996, 2,04/08/1991,04/0 07/1991,1990 HIB HbOC (HibTITER) 01/06/1992 HIB PRP-OMP (PedvaxHIB) 04/08/1991,02/11/1991, Hepatitis B (Peds) 03/08/2004,07/15/2003, 003 Human Papilloma Virus Vaccine 05/03/2009 Influenza, IIV4 07/20/2023,,09/09/2021,08/06,08/06/2018,11/27/2017 Influenza, Injectable, Mdck, Quadrivalent, W/preservative 09/07/2020 MMR 06/12/2003,02/03/1992 Meningococcal Vaccine (Menactra) 04/30/2008 Oral Polio Vaccine 05/14/1996, 2,02/11/1991,11/07 Td (Age >=7 Years) 06/12/2003 Tdap 11/26/2023,,08/06/2018,01/03 Family History Medical History Relation Name Comments Heart Disease Father left ventricle larger than it should be, possibly due to Vioxx? Cancer-breast Maternal Grandmother diagno sed at age 50 Good Health Mother Relation Name Status Comments Father Maternal Grandmother Mother Social History Tobacco Use Types Packs/Day Years Used Date Smoking Tobacco: Never Smokeless Tobacco: Never Tobacco Cessation:Counseling Given: Yes Alcohol Use Standard Drinks/Week Comments No 0 (1 standard drink = 0.6 oz pur e alcohol) sometimes, no binge drinking PHQ-2 Answer Date Recorded PHQ-2 TOTAL SCORE 0 08/29/2021 Social Connections Answer Date Recorded Frequency of Communication with Friends and Fami ly 0 08/20/2023 Financial Resource Strain Answer Date R ecorded Difficulty of Paying Living Expenses 3 08/20/2023 Difficulty of Paying Living Expenses Not on file 08/20/2023 Food Insecurity Answer Date Recorded Worried About Running Out of Food in the Last Ye ar 1 08/20/2023 Transportation Needs Answer Date Record ed Lack of Transportation (Medical) 1 08/20/2023 Housing Stability Answer Date Recorded Unable to Pay for Housing in the Last Year 1 08/20/2023 Sex and Gender Information Value Date Recorded Sex Assigned at Not on file Gender Identity Not on file Sexual Orientation Not on file Obstetrics History Para Term AB IAB SAB Ectopic Multiple Livin g Live Births 4 2 2 0 0 0 0 0 0 2 2 Date Outcome GA Total Labor Labor/2nd/3rd Weight Sex Delivery Anes PTL Raji A1 A5 Name Cl in 10/16 Term 38w 3d 7h 00m 3.63 kg (8 lb) M Vag-Vacuu m Epidu ral N Samara ng Timmy d Tappe r Delivery Location:[facility] Comments:vacuum for ma ternal exhaustion 07/12 Term 38w 3d 15h 00m 3.71 kg (8 lb 3 oz) F Vag Epidu ral N Samara ng Barbara cifuentes, Brain Price MD Delivery Location:[facility] ( [place]) Last Filed Vital Signs Vital Sign Reading Time Taken Comments Blood Pressure 123/87 02/11/2024 10:35 AM CDT Pulse 110 02/11/2024 10:35 AM CDT Temperature 36.4 ??C (97.5 ??F) 01/02/2024 1 1:50 AM EDGE MOLDER Respiratory Rate 20 06/13/2021 9:46 AM CDT Oxygen Saturation 98% 02/11/2024 10: 35 AM CDT Inhaled Oxygen Concentration - - Weight 109.1 kg (240 lb 9.6 oz) 024 10:35 AM CDT Height 174 cm (5' 8.5) 09/04/2022 9:35 AM CDT Body Mass Index 36.05 09/04/2022 9:35 AM CDT Plan of Treatment Upcoming Encounters Date Type Department Care Team (Late st Contact Info) Description 04/03/2024 1:10 PM CDT OB Encounter [facility] [address] [place] [address] Anika Castellanos MD [address] [place] [address] Health Maintenance Due Date Last Done Comments Depression screening for age 12+ 08/29/2022 08/29/2021, 12/03/2018, 11/27/2017, Additional history exists COVID-19 vaccine series (2022- season) 2023 09/04/2022, 10/17/2021, 10/17/2021, Additional history exists BMI (ht and wt on same day) for age 18+ 09/04/2023 09/04/2022, 08/29/2021, 12/02/2020, Additional history exists Influenza for age 9-49 07/06/2024 3, 09/04/2022, 09/09/2021, Additional history exists Pap test for age 21-65 08/29/2026 1, 08/29/2021, 04/05/2018, Additional history exists Tetanus booster 11/26/2033 11/26/2023, 05/05, 08/06/2018, Additional history exists Hepatitis C screening for age 18-79 Completed 03/11/2018 HIV for age 15-65 Completed 07/20/2023, , 03/11/2018, Additional history exists Tdap Completed 11/26/2023, 05/05, 08/06/2018, Additional history exists Pneumococcal series for age 6-64 Aged Out No longer eligible based on patient's age to complete this topic Procedures Procedure Name Priority Date/Time Associated Diagnosis Comments SCAN-LABORATORY REPORT 02/16/2024 12:00 AM CDT SCAN-LABORATORY REPORT 02/15/2024 12:00 AM CDT SCAN-OPERATIVE/PROCE DURE REPORT 02/15/2024 12:00 AM CDT VAGINAL/RECTAL OB STREP PCR Routine 01/25/2024 10:45 AM CDT Encounter for supervision of other normal , third trimester SCAN-PATHOLOGY REPORT 01/22/2024 12:00 AM CDT SCAN-PATHOLOGY REPORT 01/22/2024 12:00 AM CDT SCAN-LABORATORY REPORT 01/22/2024 12:00 AM CDT SCAN-LABORATORY REPORT 01/22/2024 12:00 AM CDT SCAN-ULTRASOUND REPORT 01/22/2024 12:00 AM CDT URINALYSIS MICROSCOPIC Routine 01/02/2024 11:50 AM EDGE MOLDER Hematuria, unspecified type URINE CULTURE Routine 01/02/2024 11:50 AM EDGE MOLDER Hematuria, unspecified type UA W/ SEDIMENT EXAM REFLEXED PER CRITERIA Routine 01/02/2024 11:50 AM EDGE MOLDER Hematuria, unspecified type ANTI HIV 1/2 Routine 07/20/2023 9:59 AM CDT Encounter for supervision of other normal , first trimester HPV THIN PREP Routine 08/29/2021 10:50 AM CDT Screening for cervical cancer ANTI HCV Routine 03/11/2018 2:16 PM CDT Encounter for supervision of normal first in first trimester from Last 3 Months or Most Recently Relevant to Health Maintenance Results * SCAN-LABORATORY REPORT (02/16/2024 12:00 AM CDT) Only the most recent of4 resultswithin the time period is included. Scanner OTHER * SCAN-OPERATIVE/PROCEDURE REPORT (02/15/2024 12:00 AM CDT) Scanner OTHER * VAGINAL/RECTAL OB STREP PCR (01/25/2024 10:45 AM CDT) Vaginal/Rectal OB Strep B PCR Negative 01/27/2024 9:41 AM CDT [facility] Other (Vaginal/Rectal) Non-Blood / Unknown 01/25/2024 10:45 AM CDT 01/25/2024 11:12 AM CDT Anika Castellanos MD MICROBIOLOGY [facility] [address] [place] [address], * SCAN-PATHOLOGY REPORT (01/22/2024 12:00 AM CDT) Only the most recent of2 resultswithin the time period is included. Scanner OTHER * SCAN-ULTRASOUND REPORT (01/22/2024 12:00 AM CDT) Anatomical Region Laterality Modality Other Scanner OTHER * (ABNORMAL) URINALYSIS MICROSCOPIC (01/02/2024 11:50 AM EDGE MOLDER) RBC 26-50(A) 0-2, None Seen /HPF 01/02/2024 12:08 PM EDGE MOLDER [facility] WBC 0-2 0-2, 3-5, None Seen /HPF 01/02/2024 12:08 PM EDGE MOLDER [facility] BACTERIA Moderate(A ) None Seen, Rare, Few Bacteria/ HPF 01/02/2024 12:08 PM EDGE MOLDER [facility] EPITHELIAL CELLS Few None Seen, Few Epi/HPF 01/02/2024 12:08 PM EDGE MOLDER [facility] HYALINE CASTS 0-2 0-2, 3-5 /LPF 01/02/2024 12:08 PM EDGE MOLDER [facility] Urine URINE SPECIMEN / Unknown Non-Blood / Unknown 01/02/2024 11:50 AM EDGE MOLDER 01/02/2024 11:57 AM EDGE MOLDER Anika Castellanos MD URINE [facility] [address] [place] [address], [place] [phone] * URINE CULTURE (01/02/2024 11:50 AM EDGE MOLDER) CULTURE <10,000 CFU/mL multiple organisms 01/04/2024 8:06 AM EDGE MOLDER [facility] Urine URINE SPECIMEN / Unknown Non-Blood / Unknown 01/02/2024 11:50 AM EDGE MOLDER 01/02/2024 11:57 AM EDGE MOLDER Anika Castellanos MD [facility] [address] [place] [address], [place] * (ABNORMAL) UA W/ SEDIMENT EXAM REFLEXED PER CRITERIA (01/02/2024 11:50 AM EDGE MOLDER) COLOR Yellow Yellow Color 01/02/2024 12:08 PM EDGE MOLDER [facility] CLARITY Clear Clear Clarity 01/02/2024 12:08 PM EDGE MOLDER [facility] SPECIFIC GRAVITY,URINE 1.020 1.010, 1.015, 1.020, 1.025 01/02/2024 12:08 PM EDGE MOLDER [facility] PH,URINE 7.0 6.0, 7.0, 8.0, 5.5, 6.5, 7.5, 8.5 01/02/2024 12:08 PM EDGE MOLDER [facility] UROBILINOGEN, QUALITATIVE Normal Normal EU/dl 01/02/2024 12:08 PM EDGE MOLDER [facility] PROTEIN, URINE Negative Negative mg/dL 01/02/2024 12:08 PM EDGE MOLDER [facility] GLUCOSE, URINE Negative Negative mg/dL 01/02/2024 12:08 PM EDGE MOLDER [facility] KETONES,URINE Negative Negative mg/dL 01/02/2024 12:08 PM EDGE MOLDER [facility] BILIRUBIN,URI NE Negative Negative 01/02/2024 12:08 PM [facility] OCCULT BLOOD,URINE Small(A) Negative 01/02/2024 12:08 PM EDGE MOLDER [facility] NITRITE Negative Negative 01/02/2024 12:08 PM EDGE MOLDER [facility] LEUKOCYTE ESTERASE Negative Negative 01/02/2024 12:08 PM [facility] Urine URINE SPECIMEN / Unknown Non-Blood / Unknown 01/02/2024 11:50 AM EDGE MOLDER 01/02/2024 11:57 AM EDGE MOLDER Anika Castellanos MD URINE [facility] [address] [place] [address], * ANTI HIV 1/2 (07/20/2023 9:59 AM CDT) HIV-1/HIV-2 SCREEN Non-Reacti ve Non-Reacti ve 07/21/2023 2:06 PM CDT [facility] Comment:HIV-1 p24 and HIV-1/ HIV-2 Ab Not Detected. Blood BLOOD SPECIMEN / Unknown Venipuncture / Unknown 07/20/2023 9:59 AM CDT 07/20/2023 10:01 AM CDT Anika Castellanos MD SEND OUTS [facility] [address] [place] [address], * HPV HIGH RISK (08/29/2021 10:50 AM CDT) TYPE 16 Negative Negative 08/31/2021 3:12 PM CDT [facility] TYPE 18 Negative Negative 08/31/2021 3:12 PM CDT [facility] OTHER HIGH RISK TYPES Negative Negative 08/31/2021 3:12 PM CDT [facility] Other (Cervical) Non-Blood / Unknown 08/29/2021 10:50 AM CDT 08/30/2021 10:31 AM CDT Narrative [facility] - 08/31/2021 3:12 PM CDT HPV types 16, 18, 31, 33, 35, 39, 45, 51, 52, 56, 58, 59, 66 and 68 DNA were undetectable or below the pre-set threshold. Methodology: Manisha Peter 4800 HPV Test Anika Castellanos MD MICROBIOLOGY [facility] [address] [place] [address], [place] * ANTI HCV (03/11/2018 2:16 PM CDT) HEPATITIS C ANTIBODY Non-React jolie Non-React jolie 03/11/2018 9:33 PM CDT [facility] Comment:Antibodies to HCV no t detected; does not exclude the possibility of exposure to HCV. Blood BLOOD SPECIMEN / Unknown Venipuncture / Unknown 03/11/2018 2:16 PM CDT 03/11/2018 2:16 PM CDT Sheridan LEAL SEND OUTS [facility] [address] [place] [address], from Last 3 Months or Most Recently Relevant to Health Maintenance Care Teams Appliance Servicer Relationship Specialty Start Date End Date Anika Castellanos MD [address] [place] [address] PCP - General Family Practice 10/11/18
--- NOTE | 2024-03-26 09:00 | CT_ITS ---
Patient: TIERNEY GRAVES Facility:?[facility] Patient ID:?[id number] Site Patient ID:?[id number]. Site :?1990 Study:?CT-Abdomen/Pelvis WITHOUT-03/26/2024 9:27:23 AM Ordering Physician:JUANY Final Report: Indication: Renal calculi Technique: Routine noncontrast CT abdomen and pelvis Please note that all CT scans at this facility use dose modulation, iterative reconstruction, and/or weight-based dosing when appropriate to reduce radiation dose to as low as reasonably achievable. Comparison: Renal ultrasound 01/22/2024 Findings: Lung bases are clear. No pleural effusion. Visualized breast parenchyma is unremarkable. Noncontrast enhanced liver is normal. Multiple layering stones in the gallbladder. No biliary obstruction. The pancreas is normal. Normal spleen. Adrenal glands unremarkable. Multiple stones are present within the kidneys bilaterally, measuring up to 5 millimeters. No hydronephrosis or perinephric stranding. Spleen is normal. Normal bladder. Normal ureters. Ovaries and uterus are unremarkable. No bowel obstruction or free air. No free fluid. The terminal ileum is within normal limits. No adenopathy. No fracture. No pars defect. Impression: Nonobstructing bilateral renal calculi measuring up to 5 millimeters. Normal ureters and bladder. Cholelithiasis. Please note that all CT scans at this facility use dose modulation, iterative reconstruction, and/or weight-based dosing when appropriate to reduce radiation dose to as low as reasonably achievable. Dictated by Redd Cardenas MD @ 03/26/2024 10:49:50 AM Signed by:?Redd Cardenas MD @03/26/2024 10:49:50 AM (Electronic Signature)
== END 2024-03-26 08:50 | disposition home or self-care (01) ==
LOC: CT 08:50
PROVIDERS: PCP Family Medicine; Visit Provider Urology
DX: N20.0 Calculus of kidney (principal); K80.20 Calculus of gallbladder without cholecystitis without obstruction
CPT/HCPCS: 74176